=== PATIENT | female | born 1985 | race Two or more races ===

== ENCOUNTER 2017-06-02 03:07 | Inpatient (IN) | payer MEDICAID ==
[~2017-06-02] VITALS: Ht 152.4 cm; Wt 65.7 kg
[2017-06-02] MEDS ORDERED: LACTATED RINGERS 1,000 ML IV SCH (03:22)
[2017-06-02] MEDS ORDERED: D5%-LACTATED RINGERS 1,000 ML IV SCH (03:22)
[2017-06-02] MEDS ORDERED: OXYTOCIN 30U/ 0.9% NaCL 500ML 500 ML IV ONE (03:22)
[2017-06-02] MEDS ORDERED: OXYTOCIN 30U/ 0.9% NaCL 500ML 500 ML ONE ×2 (03:26→04:50)
[2017-06-02] MEDS ORDERED: NEWBORN KIT ONE (03:26)
[2017-06-02] MEDS ORDERED: MISOPROSTOL 200 MCG TABLET ONE (03:26)
[2017-06-02] MEDS ORDERED: LIDOCAINE 1%, 20ML ONE (03:26)
[2017-06-02] MEDS ORDERED: FENTANYL PF 100 MCG/2ML IVPush PRN (03:30)
[2017-06-02] MEDS ORDERED: TERBUTALINE 1 MG/ML, 1ML IVPush PRN (03:30)
[2017-06-02] MEDS ORDERED: ONDANSETRON 2MG/ML, 2ML IVPush PRN (03:30)
[2017-06-02] MEDS ORDERED: FENTANYL PF 100 MCG/2ML IV PRN (03:30)
[2017-06-02] MEDS ORDERED: CALCIUM CARBONATE 500 MG TAB.CHEW PO PRN ×2 (03:30→04:30)
[2017-06-02] MEDS ORDERED: FENTANYL PF 100 MCG/2ML ONE (03:40)
[2017-06-02] MEDS ORDERED: FENTANYL/BUPIV./NS/PF 0 ML EPIDCONT ONE (03:57)
[2017-06-02] MEDS: OXYTOCIN 30U/ 0.9% NaCL 500ML 500 ML IV SCH ×2 (04:27→14:27)
[2017-06-02] MEDS ORDERED: ACETAMINOPHEN 325 MG TABLET PO PRN ×2 (04:30)
[2017-06-02] MEDS ORDERED: ONDANSETRON 2MG/ML, 2ML IV PRN (04:30)
[2017-06-02] MEDS ORDERED: METOCLOPRAMIDE 5 MG/ML, 2ML IV PRN (04:30)
[2017-06-02] MEDS ORDERED: HYDROcodone/APAP 5/325 TABLET PO PRN ×2 (04:30)
[2017-06-02] MEDS ORDERED: IBUPROFEN 600 MG TABLET ONE (04:34)
[2017-06-02] MEDS ORDERED: HYDROcodone/APAP 5/325 TABLET ONE (04:34)
[2017-06-02] MEDS: IBUPROFEN 600 MG TABLET PO PRN (04:43)
[2017-06-02 07:45] VITALS: BP 112/68
[2017-06-02] MEDS: PRENATAL VIT/IRON/FA 1 EACH TABLET PO SCH (09:00)
[2017-06-02 12:00] VITALS: BP 116/72
[2017-06-02 19:15] VITALS: BP 90/57
[2017-06-03] MEDS: OXYTOCIN 30U/ 0.9% NaCL 500ML 500 ML IV SCH ×2 (00:27→10:27)
[2017-06-03 00:30] VITALS: BP 94/50
[2017-06-03 04:15] VITALS: BP 96/59
[2017-06-03] MEDS: IBUPROFEN 600 MG TABLET PO PRN (09:44)
[2017-06-03] MEDS: PRENATAL VIT/IRON/FA 1 EACH TABLET PO SCH (09:44)
[2017-06-03] MEDS: DOCUSATE 100 MG CAPSULE PO PRN (09:44)
[2017-06-03 09:45] VITALS: BP 94/59
[2017-06-03 19:40] VITALS: BP 99/70
[2017-06-04 08:30] VITALS: BP 109/73
[2017-06-04] MEDS: DOCUSATE 100 MG CAPSULE PO PRN (08:33)
[2017-06-04] MEDS: PRENATAL VIT/IRON/FA 1 EACH TABLET PO SCH (08:33)
[2017-06-04] MEDS ORDERED: IBUP-1222 PO (09:44)
[2017-06-04] MEDS ORDERED: DOCU-30 PO (09:47)
[2017-06-04] MEDS ORDERED: ESCI10TA10 PO (09:48)
[2017-06-04] MEDS ORDERED: FERR325T75 PO (09:52)
== END 2017-06-04 12:51 | disposition home or self-care (01) | DRG 775 ==
LOC: LDOP 03:07 → LDIP 03:22 → 2NW 07:25
PROVIDERS: ADMIT Student in an Organized Health Care Education/Training Program; ATTEND Student in an Organized Health Care Education/Training Program
PROC: 10E0XZZ Delivery of Products of Conception, External Approach (ICD-10-PCS; principal; 2017-06-02)
DX: O99.344 Other mental disorders complicating childbirth (principal); F32.9 Major depressive disorder, single episode, unspecified; Z37.0 Single live birth; Z3A.37 37 weeks gestation of pregnancy; O90.81 Anemia of the puerperium; D64.9 Anemia, unspecified
CPT/HCPCS: 36415; 85025; 86850; 86900; J2405; J3010